=== PATIENT | male | born 1985 | race Caucasian/White ===

== ENCOUNTER 2017-08-09 00:38 | Emergency (ER) | payer OTHER ==
[~2017-08-09] VITALS: Ht 172.7 cm; Wt 113.4 kg
[2017-08-09] MEDS ORDERED: NAPR275T59 PO (00:52)
[2017-08-09 00:57] VITALS: BP 147/71
--- NOTE | 2017-08-09 00:57 | PHYS DOC ---
Past History Past Medical History: No Pertinent History, Other Past Surgical History: No Surgical History, Other Alcohol Use: Occasionally Drug Use: None Adult General Chief Complaint Chief Complaint: CHEST PAIN [facility] HPI Patient is a pleasant 31-year-old otherwise healthy male with only history of right shoulder injury requiring surgical repair who presents with right chest wall/right nipple pain that began several hours prior to arrival. Patient admits that the pain somewhat almost resolved at this time is scheduled to 10 described as soreness to his right nipple with no discharge. He denies any trauma, shortness of breath, nausea, vomiting, diarrhea. Patient denies any shortness of breath or recent URI symptoms or drainage from his nipple. Patient never had this before he was told to come here because the chest pain and apparently his recent family member that of an early heart attack. Patient does smoke on occasionally drinks alcohol is been drinking tonight. He denies any fevers, chills, weight loss or other symptoms. Pain does not radiate to his back, shoulder, neck or abdomen. Differential diagnosis for chest pain: Pericarditis, myocarditis, endocarditis, pneumothorax, pneumonia, aortic dissection, esophageal spasm, esophagitis, peptic ulcer disease, acute coronary syndrome, mediastinitis, Boerhaave syndrome , musculoskeletal chest wall pain, costochondritis, intercostal strain, rib fracture, pulmonary contusion, pneumonitis, pleural effusion, pericardial effusion, pericardial tamponode, and pleurisy. EKG done on arrival and 12:44 AM 08/09/2017 imaging. Heart rate of 103 sinus tachycardia with P wave there were QRS there is no ST segment or T-wave changes consistent with acute ischemia. There is no S1 Q3T3 pattern concerning for possible pulmonary most. Review of Systems Review of Systems Constitutional: Denies fever or chills [] Eyes: Denies change in visual acuity, redness, or eye pain [] HENT: Denies nasal congestion or sore throat [] Respiratory: Denies cough or shortness of breath [] Cardiovascular: No additional information not addressed in HPI [] GI: Denies abdominal pain, nausea, vomiting, bloody stools or diarrhea [] : Denies dysuria or hematuria [] Musculoskeletal: Denies back pain or joint pain [] Integument: Denies rash or skin lesions [] Neurologic: Denies headache, focal weakness or sensory changes [] Endocrine: Denies polyuria or polydipsia [] All other systems were reviewed and found to be within normal limits, except as documented in this note. Allergies Allergies Allergies Coded Allergies Type Severity Reaction Last Updated Verified aripiprazole Allergy Intermediate 03/28/15 Yes morphine Allergy Intermediate Hives 03/28/15 Yes Physical Exam Physical Exam Constitutional: Well developed, well nourished, patient is in no acute distress nontoxic in appearance nondiaphoretic short of breath is mildly obese HENT: Normocephalic, atraumatic, bilateral external ears normal, oropharynx moist[] Cardiovascular: Patient is mildly tachycardic Lungs & Thorax: Bilateral breath sounds clear to auscultation patient has minimal chest wall tenderness to palpation of the right nipple discharge no change in skin appearance no dimpling of the skin Abdomen: Bowel sounds normal, soft, no tenderness, no masses, no pulsatile masses. [] Skin: Warm, dry, no erythema, no rash. [] Back: No tenderness, no CVA tenderness. [] Extremities: No tenderness, no cyanosis, no clubbing, ROM intact, no edema. [] Neurologic: Alert and oriented X 3, normal motor function, normal sensory function, no focal deficits noted. [] Psychologic: Affect normal, judgement normal, mood normal. Patient is mildly diaphoretic but very appropriate he actually did not want to come here and was forthcoming by his family[] EKG EKG [] Radiology/Procedures Radiology/Procedures []PA and lateral chest x-ray read by me demonstrates no pneumothorax, no pneumonia, no infiltrate, no cardiomegaly. This is normal looking chest x-ray Course & Med Decision Making Course & Med Decision Making Pertinent Labs and Imaging studies reviewed. (See chart for details) Patient is an otherwise healthy 31-year-old male been drinking alcohol tonight although he denies trauma he has reproducible chest wall tenderness to palpation over his right nipple with no discharge noted signs of trauma. Patient 's pain is 2 of 10 offered anti-inflammatory after an EKG and negative chest x- ray. Patient asked to follow-up with his primary care doctor for continued evaluation of his chest pain. discharge: I've spoken with the patient and/or caregivers. I've explained the patient's condition, diagnosis and treatment plan based on information available to me at this time. I've answered the patient's and/or caregivers questions and addressed any concerns. The patient and/or caregivers have a good understanding the patient's diagnosis, condition and treatment plan as can be expected at this point. Vital signs have been stabilized. The patient's condition is stable for discharge from the emergency department. The patient will pursue further outpatient evaluation with her primary care provider or other designated consulting physician as outlined in the discharge instructions. Patient and/or caregivers are agreeable to this plan of care and follow-up instructions have been explained in detail. The patient and/or caregivers have received these instructions in written format and expressed understanding of these discharge instructions. The patient and her caregivers are aware that if any significant change in condition or worsening of symptoms should prompt him to immediately return to this of the closest emergency department. If an emergent department is not readily available I would encourage him to call 911. [] Whitney Disclaimer Dragon Disclaimer This electronic medical record was generated, in whole or in part, using a voice recognition dictation system. Departure Departure: Impression: Primary Impression: Chest wall pain Additional Impression: Chest pain in adult Disposition: 01 HOME, SELF-CARE Condition: IMPROVED Referrals: PCP,UNKNOWN (PCP) Patient Instructions: Chest Pain (Nonspecific), Chest Wall Pain Additional Instructions: My discharge plan Although you have low risk chest pain you May still have heart disease despite having an apparent negative workup today. I would advise that you follow-up with your primary care doctor this week to arrange follow-up with her community affairs director. The community affairs director will help stratify your risk for heart injury in the future. Follow up: In addition patient is asked to followup with their primary doctor, within a week for followup examination and to address patient's ongoing medical conditions. Patient is advised that in the Emergency Department primary complaints are addressed and only in light of known signs and symptoms. Patient should return immediately to the emergency department if new signs and symptoms develop or patient's condition worsens in any way. At time of discharge patient was in stable condition and had verbalized understanding of the discharge instructions. I've spoken with the patient and/or caregivers. I've explained the patient's condition, diagnosis and treatment plan based on information available to me at this time. I've answered the patient's and/or caregivers questions and addressed any concerns. The patient and/or caregivers have a good understanding the patient's diagnosis, condition and treatment plan as can be expected at this point. Vital signs have been stabilized. The patient's condition is stable for discharge from the emergency department. The patient will pursue further outpatient evaluation with her primary care provider or other designated consulting physician as outlined in the discharge instructions. Patient and/or caregivers are agreeable to this plan of care and follow-up instructions have been explained in detail. The patient and/or caregivers have received these instructions in written format and expressed understanding of these discharge instructions. The patient and her caregivers are aware that if any significant change in condition or worsening of symptoms should prompt him to immediately return to this of the closest emergency department. If an emergent department is not readily available I would encourage him to call 911. Scripts Naproxen Sodium (NAPROXEN SODIUM) 275 Mg Tablet 275 MG PO BID for 7 Days, #14 TAB Prov: GINNA DAVIS MD 08/09/17 Problem Qualifiers GINNA DAVIS MD Aug 09, 2017 00:56
[2017-08-09] MEDS ORDERED: KETOROLAC 60 MG/2 ML VIAL. IM ONE (01:00)
--- NOTE | 2017-08-09 05:43 | EKG ---
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
--- NOTE | 2017-08-09 08:33 | RAD ---
CHEST PA LATERAL Clinical Indication: chest wall pain Comparison: None. Findings: Low lung volume. No focal consolidation. Normal pulmonary vasculature. No pleural effusion or pneumothorax. The cardiomediastinal silhouette and great vessels are normal. No acute osseous abnormality. Neurostimulator device. IMPRESSION: No acute cardiopulmonary process.
== END 2017-08-09 01:41 | disposition home or self-care (01) ==
LOC: ER 00:38
DX: R07.89 Other chest pain (principal); Z88.8 Allergy status to other drugs, medicaments and biological substances; Z88.5 Allergy status to narcotic agent
CPT/HCPCS: 71046; 93005; 99284-25; 99285-25

== ENCOUNTER 2017-12-14 16:01 | Emergency (ER) | payer OTHER ==
[~2017-12-14] VITALS: Ht 182.9 cm; Wt 116.6 kg
[~2017-12-14 16:01] MED LIST: NAPR275T59 PO
[2017-12-14 16:31] VITALS: BP 141/95
[2017-12-14] MEDS ORDERED: HYDR25TA PO (16:46)
[2017-12-14] MEDS ORDERED: METH4TAB2 PO (16:46)
[2017-12-14] MEDS ORDERED: BETA15CR5 TP (16:46)
--- NOTE | 2017-12-14 16:46 | PHYS DOC ---
Past History Past Medical History: No Pertinent History Past Surgical History: Other Alcohol Use: Occasionally Drug Use: None Adult General Chief Complaint Chief Complaint: SKIN PROBLEM [facility] HPI 32-year-old male patient without medical problem complaining of bilateral forearm pruritus vesicular rash for one week known reason the patient denies shortness of breath and history of the same rash and exposure to poison [place]. Review of Systems Review of Systems Constitutional: Denies fever or chills [] Eyes: Denies change in visual acuity, redness, or eye pain [] HENT: Denies nasal congestion or sore throat [] Respiratory: Denies cough or shortness of breath [] Cardiovascular: No additional information not addressed in HPI [] GI: Denies abdominal pain, nausea, vomiting, bloody stools or diarrhea [] : Denies dysuria or hematuria [] Musculoskeletal: Denies back pain or joint pain [] Integument: Reports rash, denies skin lesions [] Neurologic: Denies headache, focal weakness or sensory changes [] Endocrine: Denies polyuria or polydipsia [] All other systems were reviewed and found to be within normal limits, except as documented in this note. Allergies Allergies Allergies Coded Allergies Type Severity Reaction Last Updated Verified aripiprazole Allergy Intermediate 03/28/15 Yes morphine Allergy Intermediate Hives 03/28/15 Yes Physical Exam Physical Exam Constitutional: Well developed, well nourished, no acute distress, non-toxic appearance. [] HENT: Normocephalic, atraumatic Eyes: PERRLA, EOMI, conjunctiva normal, no discharge. [] Neck: Normal range of motion, no tenderness, supple, no stridor. [] Cardiovascular:Heart rate regular rhythm, no murmur [] Lungs & Thorax: Bilateral breath sounds clear to auscultation [] Abdomen: Bowel sounds normal, soft, no tenderness, no masses, no pulsatile masses. [] Skin: Warm, dry, bilateral forearm vesicular rash with erythema in dorsal side of forearm without sign of infection Extremities: No tenderness, no cyanosis, no clubbing, ROM intact, no edema. [] Neurologic: Alert and oriented X 3, normal motor function, normal sensory function, no focal deficits noted. [] Psychologic: Affect normal, judgement normal, mood normal. [] Current Patient Data Vital Signs Vital Signs Date Time Temp Pulse Resp B/P (MAP) Pulse Ox O2 Delivery O2 Flow Rate FiO2 12/14/17 16:31 98.5 76 18 98 Room Air EKG EKG [] Radiology/Procedures Radiology/Procedures [] Course & Med Decision Making Course & Med Decision Making discharge: I've spoken with the patient and/or caregivers. I've explained the patient's condition, diagnosis and treatment plan based on information available to me at this time. I've answered the patient's and/or caregivers questions and addressed any concerns. The patient and/or caregivers have a good understanding the patient's diagnosis, condition and treatment plan as can be expected at this point. Vital signs have been stabilized. The patient's condition is stable for discharge from the emergency department. The patient will pursue further outpatient evaluation with her primary care provider or other designated consulting physician as outlined in the discharge instructions. Patient and/or caregivers are agreeable to this plan of care and follow-up instructions have been explained in detail. The patient and/or caregivers have received these instructions in written format and expressed understanding of these discharge instructions. The patient and her caregivers are aware that if any significant change in condition or worsening of symptoms should prompt him to immediately return to this of the closest emergency department. If an emergent department is not readily available I would encourage him to call 911. Dragon Disclaimer Dragon Disclaimer This electronic medical record was generated, in whole or in part, using a voice recognition dictation system. Departure Departure: Impression: Primary Impression: Contact dermatitis Additional Impressions: Tobacco abuse Tobacco abuse counseling Disposition: HOME, SELF-CARE Condition: STABLE Referrals: SANDRA CALLES DO, MPH (PCP) Patient Instructions: Contact Dermatitis, Smoking Cessation Additional Instructions: Avoid of direct sun exposing to affected area Follow-up with your primary care physician in 3-5 days Return to ER if not getting better Scripts Betamethasone Dipropionate (BETAMETHASONE DIPROPIONATE) 15 Gm Cream..g. 1 BELLA TP BID, #45 GM 1 Refill Prov: JOSE MORSE MD 12/14/17 Hydroxyzine Hcl (HYDROXYZINE HCL) 25 Mg Tablet 1 TAB PO TID, #30 TAB Prov: JOSE MORSE MD 12/14/17 Methylprednisolone (MEDROL) 4 Mg Tab.ds.pk 1 PKG PO UD, #1 PKG Prov: JOSE MORSE MD 12/14/17 Problem Qualifiers JOSE MORSE MD December 14, 2017 16:46
== END 2017-12-14 16:54 | disposition home or self-care (01) ==
LOC: ER 16:01
DX: L25.9 Unspecified contact dermatitis, unspecified cause (principal); Z72.0 Tobacco use; Z71.6 Tobacco abuse counseling; Z88.8 Allergy status to other drugs, medicaments and biological substances; Z88.5 Allergy status to narcotic agent
CPT/HCPCS: 99283